=== PATIENT | male | born 1980 | race Caucasian/White ===

== ENCOUNTER 2018-06-28 20:42 | Emergency (ER) | payer SELFPAY ==
--- NOTE | 2018-06-28 21:20 | EDM.PDOC ---
ED HPI GENERAL MEDICAL PROBLEM - General Chief Complaint: Head Injury Stated Complaint: FELL AND HIT HEAD LAST NIGHT DIZZY VOMMITTING Time Seen by Provider: 06/28/18 21:06 Source of Information: Reports: Patient History Limitations: Reports: No Limitations - History of Present Illness INITIAL COMMENTS - FREE TEXT/NARRATIVE: The patient presents with a headache, nausea, vomiting and dizziness. Last night he slipped on the ice and hit his head. He had a positive LOC for 10 seconds. He has amnesia of the event and a few things that happened after. He slept last night and today and when he woke up tonight he had more of a headache , nausea, vomiting and dizziness. He said he had trouble walking but my nurse noticed her walked back to the ER fine. He has no numbness or weakness. He has no blurred vision or double vision. He has no chest pain, shortness of breath or abdominal pain. Onset: Sudden Duration: Day(s): (Last night) Location: Reports: Head Quality: Reports: Sharp Severity: Severe Improves with: Reports: None Worsens with: Reports: None Context: Reports: Trauma (Fell and his his head) Associated Symptoms: Reports: Headaches, Nausea/Vomiting. Denies: Chest Pain, Cough, Fever/Chills, Shortness of Breath Treatments [employer] TE[employer]ER: Reports: Acetaminophen Head Pain Score (Numeric/FACES): 8 - Related Data Allergies Allergy/AdvReac Type Severity Reaction Status Date / Time No Known Allergies Allergy Verified 06/28/18 21:06 Home Meds: Home Meds Lisinopril 20 mg PO DAILY 06/28/18 [History] Rosuvastatin [Crestor] 10 mg PO DAILY 06/28/18 [History] Past Medical History Cardiovascular History: Reports: High Cholesterol, Hypertension Endocrine/Metabolic History: Reports: Diabetes, Type II Dermatologic History: Reports: Psoriasis - Past Surgical History Musculoskeletal Surgical History: Reports: Other (See Below) Other Musculoskeletal Surgeries/Procedures:: ankle surgery Social & Family History - Tobacco Use Smoking Status *Q: Current Every Day Smoker Years of Tobacco use: 20 Packs/Tins Daily: 1 - Caffeine Use Caffeine Use: Reports: Coffee, Soda, Tea - Recreational Drug Use Recreational Drug Use: No ED ROS GENERAL - Review of Systems Review Of Systems: See Below Constitutional: Reports: No Symptoms HEENT: Reports: No Symptoms Respiratory: Reports: No Symptoms Cardiovascular: Reports: No Symptoms Endocrine: Reports: No Symptoms GI/Abdominal: Reports: Nausea, Vomiting : Reports: No Symptoms Musculoskeletal: Reports: Neck Pain (lateral neck pain) Skin: Reports: No Symptoms ED EXAM, HEAD INJURY - Physical Exam Exam: See Below Exam Limited By: No Limitations General Appearance: Alert, No Apparent Distress Head: Normocephalic, Other (Tenderness to the back of the head) Eyes: Bilateral Eye: EOMI, PERRL Ears: Normal External Exam Nose: Normal Inspection Neck: Tenderness (mild anterior neck tenderness) Respiratory: No Respiratory Distress, Lungs Clear Cardiovascular: Regular Rate, Rhythm, No Edema, No Murmur GI/Abdominal Exam: Soft, Non-Tender, No Organomegaly, No Mass Back Exam: Other (Pain upon palpation to the sacrum and coccyx.) Extremities: Normal Inspection Neurologic: No Motor/Sensory Deficits, Alert, Normal Mood/Affect, Oriented x 3 Course - Vital Signs Last Recorded V/S: Last Vital Signs Temp 99.4 F 06/28/18 20:59 Pulse 97 06/28/18 20:59 Resp 18 06/28/18 20:59 BP 192/133 H 06/28/18 20:59 Pulse Ox 99 06/28/18 20:59 - Orders/Labs/Meds Orders: Active Orders 24 hr Category Date Time Status Cardiac Monitoring [RC] . DIRECTED Care 06/28/18 21:28 Active Peripheral IV Care [RC] . DIRECTED Care 06/28/18 21:28 Active Head wo Cont [CT] Stat Exams 06/28/18 21:29 Taken Acetaminophen [Tylenol] Med 06/28/18 23:51 Once 975 mg PO NOW ONE Sodium Chloride 0.9% [Normal Saline] 1,000 ml Med 06/28/18 21:30 Active IV .BOLUS Sodium Chloride 0.9% [Saline Flush] Med 06/28/18 21:28 Active 10 ml FLUSH ASDIRECTED PRN ED Antiemetic Medication Reflex [OM.PC] Stat Oth 06/28/18 21:28 Ordered Peripheral IV Insertion Adult [OM.PC] Stat Oth 06/28/18 21:28 Ordered Medication Orders Acetaminophen (Tylenol) 975 mg PO NOW ONE Stop: 06/28/18 23:52 Sodium Chloride (Normal Saline) 1,000 mls @ 1,000 mls/hr IV .BOLUS KIM Last Admin: 06/28/18 21:38 Dose: 1,000 mls/hr Sodium Chloride (Saline Flush) 10 ml FLUSH ASDIRECTED PRN PRN Reason: Keep Vein Open Last Admin: 06/28/18 21:39 Dose: 10 ml Labs: Laboratory Tests 06/28/18 06/28/18 Range/Units 21:40 21:40 WBC 7.65 (4.23-9.07) K/mm3 RBC 4.90 (4.63-6.08) M/mm3 Hgb 16.1 (13.7-17.5) gm/L Hct 45.5 (40.1-51.0) % MCV 92.9 H (79.0-92.2) fl MCH 32.9 H (25.7-32.2) pg MCHC 35.4 (32.2-35.5) g/dl RDW Std Deviation 40.9 (35.1-43.9) fL Plt Count 296 (163-337) K/mm3 MPV 9.2 L (9.4-12.3) fl Neut % (Auto) 59.3 (34.0-67.9) % Lymph % (Auto) 29.7 (21.8-53.1) % [place] % (Auto) 8.1 (5.3-12.2) % Eos % (Auto) 1.0 (0.8-7.0) Baso % (Auto) 1.6 H (0.1-1.2) % Neut # (Auto) 4.54 (1.78-5.38) K/mm3 Lymph # (Auto) 2.27 (1.32-3.57) K/mm3 [place] # (Auto) 0.62 (0.30-0.82) K/mm3 Eos # (Auto) 0.08 (0.04-0.54) K/mm3 Baso # (Auto) 0.12 H (0.01-0.08) K/mm3 Sodium 138 (136-145) mEq/L Potassium 4.0 (3.5-5.1) mEq/L Chloride 99 (98-107) mEq/L Carbon Dioxide 28 (21-32) mEq/L Anion Gap 15.0 (5-15) BUN 18 (7-18) mg/dL Creatinine 1.0 (0.7-1.3) mg/dL Est Cr Clr Drug Dosing 115.41 mL/min Estimated GFR (MDRD) > 60 (>60) mL/min BUN/Creatinine Ratio 18.0 (14-18) Glucose 208 H (74-106) mg/dL Calcium 8.5 (8.5-10.1) mg/dL Total Bilirubin 0.2 (0.2-1.0) mg/dL AST 30 (15-37) U/L ALT 64 H (16-63) U/L Alkaline Phosphatase 74 (46-116) U/L Total Protein 7.6 (6.4-8.2) g/dl Albumin 3.7 (3.4-5.0) g/dl Globulin 3.9 gm/dL Albumin/Globulin Ratio 1.0 (1-2) Meds: Medications Generic Name Dose Route Start Last Admin Trade Name Freq PRN Reason Stop Dose Admin Acetaminophen 975 mg 06/28/18 23:51 Tylenol PO 06/28/18 23:52 NOW ONE Sodium Chloride 1,000 mls @ 1,000 mls/hr 06/28/18 21:30 06/28/18 21:38 Normal Saline IV 1,000 mls/hr .BOLUS KIM Administration Sodium Chloride 10 ml 06/28/18 21:28 06/28/18 21:39 Saline Flush FLUSH 10 ml ASDIRECTED PRN Administration Keep Vein Open Discontinued Medications Generic Name Dose Route Start Last Admin Trade Name Freq PRN Reason Stop Dose Admin Ondansetron HCl 4 mg 06/28/18 21:28 06/28/18 21:38 Zofran IVPUSH 06/28/18 21:29 4 mg ONETIME ONE Administration - Re-Assessments/Exams Free Text/Narrative Re-Assessment/Exam: 06/28/18 23:58 I ordered an IV NS 1L bolus, zofran 4mg IV, labs, and a CT of his head. The CT shows nothing acute. His CBC looks good. His blood sugar was a little elevated at 208. He feels better. He still has a headache so I ordered tylenol for his headache. He has a moderate to severe concussion. I will have him off of work for a few days. 06/29/18 00:01 His blood pressure was high so I ordered his lisinopril 20mg by mouth. Departure - Departure Time of Disposition: 00:10 Disposition: Home, Self-Care 01 Condition: Good Clinical Impression: Fall Qualifiers: Encounter type: initial encounter Qualified Code(s): W19.XXXA - Unspecified fall, initial encounter Concussion Qualifiers: Encounter type: initial encounter Loss of consciousness presence/duration: with LOC of 30 min or less Qualified Code(s): S06.0X1A - Concussion with loss of consciousness of 30 minutes or less, initial encounter Hypertension Qualifiers: Hypertension type: essential hypertension Qualified Code(s): I10 - Essential ( primary) hypertension - Discharge Information *PRESCRIPTION DRUG MONITORING PROGRAM REVIEWED*: No *COPY OF PRESCRIPTION DRUG MONITORING REPORT IN PATIENT MIS: No Referrals: Zoya Medina NP [Primary Care Provider] - 1 Week Forms: ED Department Discharge, ED Return to Work/School Form Additional Instructions: Take tylenol or motrin for any headache. Take zofran every 6 hours as needed for nausea and vomiting. Take your blood pressure meds. Rest the next few days. Avoid stimulation like TV, smart phone, tablets and lots of noise. Follow up with Zoya. You may try either [facility] [phone] or [facility] [phone] for help with the concussion. They have therapists for this. Please return if you are worse. - My Orders Last 24 Hours: My Active Orders 06/28/18 21:28 Cardiac Monitoring [RC] . DIRECTED Peripheral IV Care [RC] . DIRECTED Sodium Chloride 0.9% [Saline Flush] 10 ml FLUSH ASDIRECTED PRN ED Antiemetic Medication Reflex [OM.PC] Stat Peripheral IV Insertion Adult [OM.PC] Stat 06/28/18 21:29 Head wo Cont [CT] Stat 06/28/18 21:30 Sodium Chloride 0.9% [Normal Saline] 1,000 ml IV .BOLUS 06/28/18 23:51 Acetaminophen [Tylenol] 975 mg PO NOW ONE - Assessment/Plan Last 24 Hours: My Active Orders 06/28/18 21:28 Cardiac Monitoring [RC] . DIRECTED Peripheral IV Care [RC] . DIRECTED Sodium Chloride 0.9% [Saline Flush] 10 ml FLUSH ASDIRECTED PRN ED Antiemetic Medication Reflex [OM.PC] Stat Peripheral IV Insertion Adult [OM.PC] Stat 06/28/18 21:29 Head wo Cont [CT] Stat 06/28/18 21:30 Sodium Chloride 0.9% [Normal Saline] 1,000 ml IV .BOLUS 06/28/18 23:51 Acetaminophen [Tylenol] 975 mg PO NOW ONE
[2018-06-28] MEDS ORDERED: Sodium Chloride 0.9% 10 ML Syringe FLUSH PRN (21:28)
[2018-06-28] MEDS ORDERED: Ondansetron 4 MG/2 ML SDV IVPUSH ONE (21:28)
[2018-06-28] MEDS ORDERED: Sodium Chloride 0.9% 1,000 ML IV SCH (21:30)
[2018-06-28] MEDS ORDERED: Acetaminophen 325 MG Tab PO ONE (23:51)
[2018-06-29] MEDS ORDERED: Lisinopril 20 MG Tab PO ONE (00:01)
--- NOTE | 2018-06-29 07:57 | CT ---
Head CT Technique: Multiple axial sections through the brain were obtained. Intravenous contrast was not utilized. Comparison: No prior intracranial imaging is available. Findings: Ventricles along with basal cisterns and sulci over the convexities are within normal limits for the patient's age. No abnormal parenchymal densities are seen. No evidence of intracranial hemorrhage. No midline shift or mass effect is seen. Bone window settings were reviewed which show no acute calvarial abnormality. Mild mucosal thickening is seen within the ethmoid sinuses. Impression: 1. Sinus findings which are felt to be incidental and chronic. 2. Nothing acute is appreciated on noncontrast head CT exam. Diagnostic code #2 I agree with preliminary report from [facility], finalized on 06/28/18, 11:30 PM Central Time
== END 2018-06-29 00:17 | disposition home or self-care (01) ==
LOC: JD.ED 20:42
DX: S06.0X1A Concussion with loss of consciousness of 30 minutes or less, initial encounter (principal); R11.2 Nausea with vomiting, unspecified; I10 Essential (primary) hypertension; E11.9 Type 2 diabetes mellitus without complications; E78.00 Pure hypercholesterolemia, unspecified; F17.200 Nicotine dependence, unspecified, uncomplicated; W00.0XXA Fall on same level due to ice and snow, initial encounter; Z79.899 Other long term (current) drug therapy; Z98.890 Other specified postprocedural states
CPT/HCPCS: 36415; 70450; 80053; 85025; 96361; 96374; 99284; A9270; J2405; J7040

== ENCOUNTER 2022-01-31 14:28 | Emergency (ER) | payer BC ==
[2022-01-31] MEDS ORDERED: Sodium Chloride 0.9% 10 ML Syringe FLUSH PRN (17:00)
[2022-01-31] MEDS ORDERED: Sodium Chloride 0.9% 1,000 ML IV SCH (17:00)
[2022-01-31 18:41] LABS: HEMOGLOBIN A1C 8.9 %
[2022-01-31] MEDS ORDERED: HYDROmorphone 0.5 MG/0.5 ML Syringe IVPUSH ONE (18:55)
== END 2022-01-31 19:19 | disposition home or self-care (01) ==
LOC: JD.ED 14:28
DX: R42 Dizziness and giddiness (principal); R51.9 Headache, unspecified; R55 Syncope and collapse; I10 Essential (primary) hypertension; E11.9 Type 2 diabetes mellitus without complications; F17.210 Nicotine dependence, cigarettes, uncomplicated; Z79.899 Other long term (current) drug therapy
CPT/HCPCS: 36415; 71045; 80053; 83036; 84484; 85025; 85379; 86140; 93005; 93225; 93226; 96361; 96374; 99284; J1170; J3490; J7030; 93010

== ENCOUNTER 2023-07-06 19:48 | Emergency (ER) | payer OTHER ==
[2023-07-06] MEDS ORDERED: HYDROmorphone 1 MG/ML Syringe IVPUSH ONE (20:08)
[2023-07-06] MEDS ORDERED: Metoclopramide 10 MG/2 ML SDV IVPUSH ONE (20:08)
[2023-07-06] MEDS ORDERED: Sodium Chloride 0.9% 1,000 ML IV SCH (20:15)
[2023-07-06] MEDS ORDERED: Sodium Chloride 0.9% 10 ML Syringe FLUSH ONE (23:01)
[2023-07-06] MEDS ORDERED: Iopamidol 612 MG/ML 100 ML Bottle IVPUSH ONE (23:01)
[2023-07-06] MEDS ORDERED: amLODIPine 10 MG Tab PO ONE (23:29)
[2023-07-06] MEDS ORDERED: Acetaminophen/oxyCODONE 325-5 MG Tab PO ONE (23:29)
== END 2023-07-06 23:56 | disposition home or self-care (01) ==
LOC: JD.ED 19:48
DX: S22.009A Unspecified fracture of unspecified thoracic vertebra, initial encounter for closed fracture (principal); I10 Essential (primary) hypertension; E11.9 Type 2 diabetes mellitus without complications; V89.2XXA Person injured in unspecified motor-vehicle accident, traffic, initial encounter; Z79.899 Other long term (current) drug therapy
CPT/HCPCS: 71260; 72125; 72128; 96374; 99285; A9270; J1170; J2765; J3490; J7030; Q9967; 99284

== ENCOUNTER 2024-08-13 15:59 | Emergency (ER) | payer OTHER | END 2024-08-13 19:31 | disposition home or self-care (01) | LOC: JD.ED 15:59 | DX: S90.424A Blister (nonthermal), right lesser toe(s), initial encounter (principal); I10 Essential (primary) hypertension; E11.9 Type 2 diabetes mellitus without complications; Z79.899 Other long term (current) drug therapy; Z87.891 Personal history of nicotine dependence; X58.XXXA Exposure to other specified factors, initial encounter | CPT/HCPCS: 93971-26-RT; 93971-RT; 99283 ==